=== PATIENT | female | born 1980 | race Caucasian/White ===

== ENCOUNTER 2023-07-21 10:53 | Emergency (ER) | payer OTHER, SELFPAY ==
[2023-07-21 11:01] VITALS: BP 136/92
[2023-07-21 11:18] VITALS: BMI 32.9
[2023-07-21] MEDS: TORADOL 30 MG IV (11:35)
[2023-07-21] MEDS: NSS 1000 IV (11:35)
[2023-07-21] MEDS: ZOFRAN 4 MG IV (11:36)
[2023-07-21 11:48] LABS: Urine Albumin Negative (Neg - Trace); Urine Bilirubin Negative (Negative); Urine Character Clear (Clear); Urine Color Yellow; Urine Glucose Negative (Negative); Urine Ketone Negative (Negative); Urine Leukocyte Negative (Negative); Urine Nitrite Negative (Negative); Urine Occult Blood Negative (Negative); Urine Urobilinogen Negative (Neg - 1+)
[2023-07-21 11:50] LABS: % Basophils 0.5 % (0-2); % Immature Granulocytes 0.5 % (0-0.5); % Monocytes 7.6 % (1.7-9.3); % Neutrophils 56.4 % (42.2-75.2); Absolute Eosinophils 0.1 10^3/uL (0-0.7); Absolute Lymphocytes 2.7 10^3/uL (1.2-3.4); Absolute Monocytes 0.6 10^3/uL (0.1-0.6); Absolute Neutrophils 4.5 10^3/uL (1.4-6.5); Hematocrit 39.2 % (37.0-47.0); Hemoglobin 13.5 g/dL (12.0-16.0); Mean Corp Hgb Conc. 34.4 g/dL (33.0-37.0); Mean Corpuscular Hgb 29.8 pg (27.0-31.0); Mean Corpuscular Volume 86.5 fL (81.0-99.0); Nucleated Red Blood Cells % 0 %; Platelet Count 297 10^3/uL (130-400); Red Blood Cell Count 4.53 10^6/uL (4.20-5.40); Red Cell Dist. Width 13.6 % (11.5-14.5)
[2023-07-21 12:03] LABS: HCG, Serum Qualitative Screen Negative
[2023-07-21 12:07] LABS: ALT (SGPT) 25 U/L (0-35); AST (SGOT) 29 U/L (14-36); Albumin 4.6 g/dl (3.5-5.0); Alkaline Phosphatase 95 U/L (38-126); Blood Urea Nitrogen 10 mg/dl (7-17); Calcium 9.8 mg/dl (8.4-10.2); Carbon Dioxide 24 mmol/L (22-30); Chloride 103 mmol/L (98-107); Estimated Creatinine Clearance 93 ml/min; Glucose 85 mg/dl (70-99); Potassium 4.4 mmol/L (3.5-5.1); Sodium 136 mmol/L (135-145); Total Bilirubin 0.3 mg/dl (0.2-1.3); Total Protein 7.1 g/dl (6.3-8.2); eGFR > 60.00
--- NOTE | 2023-07-21 12:08 | ED.GENMED ---
History of Present Illness
General
Chief Complaint: Abdominal Symptoms
Source: patient
Exam Limitations: none
Time Seen by Provider: 07/21/23 11:06
Nursing documentation reviewed up to this point in time: agreed with
Travel History
Have you had any contact with someone who has COVID-19?: No
Do you have any symptoms of coronavirus? Fever > 100 degrees, chills, cough, shortness of breath, sore throat, loss of taste or smell, muscle aches, or headache?: No
History of Present Illness
History of Present Illness:
43-year-old female with past medical history of liver masses and had recent liver surgery 11 weeks ago as well as frequent kidney stones presenting to the emergency department today with concerns of pain that feels similar to previous episode of
kidney stones. Pain mainly to the left flank and abdomen. Denies significant urinary symptoms no fever no recent illness some nausea no vomiting.
Review of Systems
Review of Systems
Allergies reviewed?: Yes
All Other Systems: ROS reviewed and negative except as documented in HPI and ROS
Phy Exam
Physical Exam
Physical Exam:
GENERAL: Alert , in no apparent distress
EYE: pupils equal and reactive
NECK: Supple, no significant adenopathy.
ENT: o/p clr, mmm.
CARDIAC: Regular rate and rhythm .
LUNGS: Clear breath sounds bilaterally, no acute respiratory distress, no wheezes/rales/rhonchi
ABDOMEN: Mild tenderness throughout the abdomen well-healed surgical incisions to the midline and left upper right upper quadrant.
NEUROLOGICAL: Alert and oriented, no focal neuro deficits
SKIN: Warm and dry, skin intact.
MUSCULOSKELETAL: No edema, well perfused.
PSYCH: Normal and appropriate interaction.
Course
Orders/Labs/Results
Orders:
Orders
07/21/23 11:23
Test Result ONCE
07/21/23 11:27
0.9% Sodium Chloride 1000 ml [Nss] 1,000 ml IV BOLUS
Ketorolac [Toradol] 30 mg IV NOW STA
Ondansetron Injectable [Zofran] 4 mg IV NOW STA
07/21/23 11:28
CT Abd/Pel (IV only)-DH only Urgent
Comment:
Reason For Exam: diffuse abd pain, hx of liver masses partial resec
07/21/23 11:35
Complete Blood Count/With Diff Urgent
Comprehensive Metabolic Panel Urgent
HCG, Serum Qualitative Screen Urgent
Lipase Urgent
Urinalysis Reflex To Culture Urgent
Date Specimen was Collected: 07/21/23
Time Specimen was Collected: 11:23
Abnormal Lab Results
07/21/23
11:35
Lipase 301 H U/L
(23-300)
07/21/23 11:35
07/21/23 11:35
Vital Signs
Initial and Last Documented VS:
Initial Vital Signs
Temp Pulse Resp BP Pulse Ox
98.1 F 94 16 136/92 98
07/21/23 11:01 07/21/23 11:01 07/21/23 11:01 07/21/23 11:01 07/21/23 11:01
Last Documented Vital Signs
Temp Pulse Resp BP Pulse Ox
98.1 F 77 18 139/75 99
07/21/23 11:01 07/21/23 14:21 07/21/23 14:21 07/21/23 14:21 07/21/23 14:21
MDM/Problems Addressed
MDM/Problems Addressed:
43-year-old female presenting to the emergency department today with concerns of abdominal discomfort over the past few days she is concerned it could be a kidney stone. She did have liver surgery 11 weeks ago for liver masses. Here she has mild
tenderness throughout the abdomen. Patient's vital signs here are very normal labs unremarkable urinalysis normal CT scan without emergent findings patient was reassessed but no specific focal tenderness on exam does not seem to be surgical or
emergent pathology causing symptoms at this time advised close outpatient follow-up. Return precautions given.
*Critical Care Note
Total Time (30-74mins, 75-104mins- exclusive of procedures): Not Applicable
ED Attending Note
-
Portions of this chart may have been created with voice recognition software.� Occasional wrong word or��sound alike� substitutions may have occurred due to the inherent limitations of voice recognition software.
Discharge Plan
Departure
Patient Disposition: Home (Routine Discharge)
Date of Disposition: 07/21/23
Time of Disposition: 14:56
Patient with high blood pressure during this ER visit?: No
Condition: Good
Covid-19: Not Applicable
Discharge Problem:
Abdominal pain
Instructions: Abdominal Pain
Prescriptions:
No Action
oxcarbazepine 150 mg Tablet
150 mg PO BID
melatonin 3 mg Tablet
3 mg PO HS PRN (Reason: sleep)
omeprazole 40 mg Capsule,Delayed Release(Dr/Ec)
40 mg PO DAILY
indomethacin 50 mg Capsule
50 mg PO QID PRN (Reason: pain)
montelukast 10 mg Tablet
10 mg PO HS
acebutolol 200 mg Capsule
200 mg PO BID
escitalopram oxalate [Lexapro] 5 mg Tablet
5 mg PO BID
cholecalciferol (vitamin D3) [Vitamin D3] 50 mcg (2,000 unit) Capsule
50 mcg PO DAILY
potassium citrate 15 mEq Tablet Extended Release
15 meq PO BID
tranexamic acid 650 mg Tablet
1,300 mg PO TID
Rx Instructions:
during mensus
Nurtec ODT 75 mg Tablet,Disintegrating
75 mg PO ONCE PRN (Reason: migraine)
atogepant 60 mg Tablet
60 mg PO DAILY
Zepbound 5 mg/0.5 mL Pen Injector
5 mg SC QWEEK
Rx Instructions:
mondays
Botox
Marijuana Tincture
Referrals:
Rosa El MD [Family Provider] -
Activity Restrictions/Additional Instructions:
You came to the emergency department today with concerns of abdominal pain. Here he had a reassuring assessment without emergent findings on exam. Please help closely with your liver doctor and primary care doctor. Return to the emergency
department for any progressive or changing symptoms.
Interventions
Interventions:
*Risk Screen - Suicide Last Done: 07/21/23 11:18
*General Assessment Last Done: 07/21/23 11:18
*Neglect/Abuse Screening Last Done: 07/21/23 11:18
*ED COVID-19 Vaccine History Last Done: 07/21/23 11:01
YQ-Ctujce-Sworvssyrj Assessment Last Done: 07/21/23 11:18
Discharge Date and Time
Print Language: IRISH
[2023-07-21 12:47] LABS: Lipase 301 U/L (23-300)
[2023-07-21 14:21] VITALS: BP 139/75
== END 2023-07-21 15:32 | disposition home or self-care (01) ==
LOC: EMR 10:53
PROVIDERS: Physician Assistant; EMERGENCY PHYSICIAN Emergency Medicine; FAMILY PHYSICIAN Student in an Organized Health Care Education/Training Program
DX: R10.9 Unspecified abdominal pain (principal); Z87.442 Personal history of urinary calculi
CPT/HCPCS: 99284; 96374; 96375; 96361; 74177; 80053; 81003; 83690; 84703; 85025; Q9967